=== PATIENT | female | born 1965 | race Caucasian/White ===

== ENCOUNTER → 2017-11-14 11:41 | Outpatient (CLI) | payer OTHER ==
[~2017-11-14] VITALS: Ht 152.4 cm; Wt 81.6 kg
[~2017-11-14 11:41] MED LIST: KETO10TA2 PO; METFORMIN HCL500 MG; TORADOL60 MG IM
== END | disposition home or self-care (01) ==
LOC: PPHC 11:41
DX: H92.02 Otalgia, left ear (principal); R92.8 Other abnormal and inconclusive findings on diagnostic imaging of breast

== ENCOUNTER 2017-11-19 13:53 | Outpatient (CLI) | payer OTHER | END 2017-11-20 09:26 | disposition home or self-care (01) | LOC: MAMO-SONO 13:53 | DX: Z12.31 Encounter for screening mammogram for malignant neoplasm of breast (principal); R92.8 Other abnormal and inconclusive findings on diagnostic imaging of breast; N60.29 Fibroadenosis of unspecified breast ==

== ENCOUNTER 2018-05-13 15:17 | Outpatient (CLI) | payer OTHER | END 2018-05-13 15:18 | disposition home or self-care (01) | LOC: EKG 15:17 | DX: I10 Essential (primary) hypertension (principal) ==